=== PATIENT | male | born 1960 | race Caucasian/White ===

== ENCOUNTER 2023-05-25 09:35 | Emergency (ER) | payer SELFPAY ==
[~2023-05-25] VITALS: Ht 175.3 cm; Wt 81.6 kg
[~2023-05-25 09:35] MED LIST: PSYL684P2 PO
[2023-05-25 10:10] LABS: BASOPHILS % (AUTO) 0.4 % (0-1); EOSINOPHILS # (AUTO) 0.4 X10'3 (0-0.9); EOSINOPHILS % (AUTO) 5.8 % (0-6); HEMATOCRIT 45.4 % (42.0-52.0); HEMOGLOBIN 15.4 g/dl (14.0-17.9); LYMPHOCYTES # (AUTO) 1.5 X10'3 (1.1-4.8); LYMPHOCYTES % (AUTO) 21.2 % (21-51); MEAN CORPUSCULAR HEMOGLOBIN 31.3 PG (27.0-31.0); MEAN CORPUSCULAR HGB CONC 33.8 g/dL (33.0-36.5); MEAN CORPUSCULAR VOLUME 92.6 FL (78-98); MEAN PLATELET VOLUME 7.9 FL (7.4-10.4); MONOCYTES # (AUTO) 0.8 X10'3 (0-0.9); MONOCYTES % (AUTO) 11.1 % (2-12); NEUTROPHILS # (AUTO) 4.3 X10'3 (1.8-7.7); NEUTROPHILS % (AUTO) 61.5 % (42-75); PLATELET COUNT 98 X10'3 (140-440); RED BLOOD COUNT 4.91 X10'6 (4.70-6.10); RED CELL DISTRIBUTION WIDTH 15.1 % (11.5-14.5); WHITE BLOOD COUNT 6.9 X10'3 (4.5-11.0)
[2023-05-25 10:23] LABS: ALANINE AMINOTRANSFERASE 28 U/L (12-78); ALBUMIN 3.4 G/DL (3.4-5.0); ALBUMIN/GLOBULIN RATIO 0.6 (1.1-1.5); ALKALINE PHOSPHATASE 77 IU/L (46-116); ANION GAP 6 (8-16); ASPARTATE AMINO TRANSFERASE 27 U/L (10-37); BILIRUBIN,TOTAL 1.1 MG/DL (0.1-1.0); BLOOD UREA NITROGEN 8 MG/DL (7-18); BUN/CREATININE RATIO 10.5 (10.0-20.0); CALCIUM 8.6 MG/DL (8.5-10.1); CHLORIDE 105 MMOL/L (99-107); CREATININE 0.76 MG/DL (0.60-1.10); GLUCOSE 126 MG/DL (70-104); LIPASE 79 U/L (73-393); POTASSIUM 3.5 MMOL/L (3.5-5.1); SODIUM 136 MMOL/L (135-145); TOTAL CARBON DIOXIDE 24.6 MMOL/L (24-32); TOTAL PROTEIN 8.8 G/DL (6.4-8.2); eGFR > 90 ML/MIN
[2023-05-25] MEDS ORDERED: morphine 4 MG/ML inj SYRINge IV PRN (10:25)
[2023-05-25] MEDS ORDERED: normal saline 1000ML IV soln IVB ONE ×2 (10:25→11:45)
[2023-05-25] MEDS ORDERED: ondansetron/PF 4mg/2ml inj IV ONE (10:25)
[2023-05-25 11:25] VITALS: BP 163/99
[2023-05-25 11:44] LABS: CLARITY,URINE CLEAR (Clear); COLOR,URINE YELLOW (Yellow); GLUCOSE, URINE NEGATIVE (Neg); KETONES,URINE NEGATIVE (Neg); LEUKOCYTE ESTERASE ,URINE NEGATIVE (Neg); NITRITES, URINE NEGATIVE (Neg); OCCULT BLOOD,URINE NEGATIVE (Neg); PROTEIN,URINE NEGATIVE (Neg); UROBILINOGEN,URINE 0.2 E.U/dL (0.2-1.0)
[2023-05-25 11:49] LABS: UA COLLECTION TYPE CLN CATCH MIDSTREAM
[2023-05-25] MEDS ORDERED: [UNRECOGNIZED DRUG - CODE] PO (12:43)
[2023-05-25] MEDS ORDERED: PER5325T PO (15:15)
== END 2023-05-25 12:59 | disposition home or self-care (01) ==
LOC: ER 09:35
DX: K70.30 Alcoholic cirrhosis of liver without ascites (principal); G89.29 Other chronic pain; M54.9 Dorsalgia, unspecified; F32.A Depression, unspecified; Z79.899 Other long term (current) drug therapy; B19.20 Unspecified viral hepatitis C without hepatic coma; B25.1 Cytomegaloviral hepatitis
CPT/HCPCS: 74176; 80053; 81003; 83690; 85025; 96361; 96374; 96375; 99285; J2270; J2405; J7030

== ENCOUNTER 2023-06-25 04:50 | Emergency (ER) | payer MEDICAID ==
[~2023-06-25] VITALS: Ht 177.8 cm; Wt 86.4 kg
[~2023-06-25 04:50] MED LIST changes: +PER5325T PO
[2023-06-25 07:57] LABS: BASOPHILS % (AUTO) 0.5 % (0-1); EOSINOPHILS # (AUTO) 0.4 X10'3 (0-0.9); EOSINOPHILS % (AUTO) 4.9 % (0-6); HEMATOCRIT 45.3 % (42.0-52.0); HEMOGLOBIN 15.5 g/dl (14.0-17.9); LYMPHOCYTES # (AUTO) 1.4 X10'3 (1.1-4.8); LYMPHOCYTES % (AUTO) 17.6 % (21-51); MEAN CORPUSCULAR HEMOGLOBIN 31.6 PG (27.0-31.0); MEAN CORPUSCULAR HGB CONC 34.3 g/dL (33.0-36.5); MEAN CORPUSCULAR VOLUME 92.2 FL (78-98); MEAN PLATELET VOLUME 8.4 FL (7.4-10.4); MONOCYTES # (AUTO) 0.9 X10'3 (0-0.9); MONOCYTES % (AUTO) 10.9 % (2-12); NEUTROPHILS # (AUTO) 5.2 X10'3 (1.8-7.7); NEUTROPHILS % (AUTO) 66.1 % (42-75); PLATELET COUNT 73 X10'3 (140-440); RED BLOOD COUNT 4.91 X10'6 (4.70-6.10); RED CELL DISTRIBUTION WIDTH 14.8 % (11.5-14.5); WHITE BLOOD COUNT 7.8 X10'3 (4.5-11.0)
[2023-06-25 08:05] LABS: ALANINE AMINOTRANSFERASE 20 U/L (12-78); ALBUMIN 3.5 G/DL (3.4-5.0); ALBUMIN/GLOBULIN RATIO 0.6 (1.1-1.5); ALKALINE PHOSPHATASE 79 IU/L (46-116); AMYLASE 48 U/L (25-115); ANION GAP 11 (8-16); ASPARTATE AMINO TRANSFERASE 22 U/L (10-37); BLOOD UREA NITROGEN 11 MG/DL (7-18); BUN/CREATININE RATIO 14.5 (10.0-20.0); CALCIUM 9.1 MG/DL (8.5-10.1); CHLORIDE 103 MMOL/L (99-107); CREATININE 0.76 MG/DL (0.60-1.10); GLUCOSE 142 MG/DL (70-104); LIPASE 79 U/L (73-393); POTASSIUM 3.9 MMOL/L (3.5-5.1); SODIUM 141 MMOL/L (135-145); TOTAL CARBON DIOXIDE 27.1 MMOL/L (24-32); TOTAL PROTEIN 9.1 G/DL (6.4-8.2); eGFR > 90 ML/MIN
[2023-06-25] MEDS ORDERED: normal saline 1000ml 1,000 ML IV ONE (10:45)
[2023-06-25] MEDS ORDERED: morphine 2 MG/ML inj. syringe IV ONE ×2 (10:45→15:35)
[2023-06-25] MEDS ORDERED: ondansetron/PF 4mg/2ml inj IV ONE ×2 (10:45→15:35)
[2023-06-25] MEDS ORDERED: iohexol 300mg/ml 100ml inj. ONE (10:51)
[2023-06-25 11:25] LABS: BASOPHILS % (AUTO) 0.5 % (0-1); EOSINOPHILS # (AUTO) 0.2 X10'3 (0-0.9); EOSINOPHILS % (AUTO) 3.5 % (0-6); HEMATOCRIT 41.2 % (42.0-52.0); HEMOGLOBIN 14.1 g/dl (14.0-17.9); LYMPHOCYTES # (AUTO) 1.3 X10'3 (1.1-4.8); LYMPHOCYTES % (AUTO) 17.7 % (21-51); MEAN CORPUSCULAR HEMOGLOBIN 31.5 PG (27.0-31.0); MEAN CORPUSCULAR HGB CONC 34.3 g/dL (33.0-36.5); MEAN PLATELET VOLUME 8.1 FL (7.4-10.4); MONOCYTES # (AUTO) 0.8 X10'3 (0-0.9); MONOCYTES % (AUTO) 10.9 % (2-12); NEUTROPHILS # (AUTO) 4.8 X10'3 (1.8-7.7); NEUTROPHILS % (AUTO) 67.4 % (42-75); PLATELET COUNT 65 X10'3 (140-440); RED BLOOD COUNT 4.48 X10'6 (4.70-6.10); RED CELL DISTRIBUTION WIDTH 14.5 % (11.5-14.5); WHITE BLOOD COUNT 7.1 X10'3 (4.5-11.0)
[2023-06-25 11:32] LABS: CLARITY,URINE CLEAR (Clear); COLOR,URINE YELLOW (Yellow); GLUCOSE, URINE NEGATIVE (Neg); KETONES,URINE NEGATIVE (Neg); LEUKOCYTE ESTERASE ,URINE NEGATIVE (Neg); NITRITES, URINE NEGATIVE (Neg); OCCULT BLOOD,URINE NEGATIVE (Neg); PH,URINE 5.5 (4.8-8.0); PROTEIN,URINE NEGATIVE (Neg)
[2023-06-25 11:34] LABS: UA COLLECTION TYPE CLN CATCH MIDSTREAM
[2023-06-25 11:40] LABS: URINE AMPHETAMINE SCREEN NEGATIVE (Neg); URINE BARBITUATE SCREEN NEGATIVE (Neg); URINE BENZODIAZEPINES SCREEN NEGATIVE (Neg); URINE CANNABINOID SCREEN POSITIVE (Neg); URINE COCAINE SCREEN NEGATIVE (Neg); URINE METHADONE SCREEN NEGATIVE (Neg); URINE OPIATE SCREEN NEGATIVE (Neg); URINE PHENCYCLIDINE SCREEN NEGATIVE (Neg)
[2023-06-25 11:41] LABS: ALANINE AMINOTRANSFERASE 21 U/L (12-78); ALBUMIN 3.3 G/DL (3.4-5.0); ALBUMIN/GLOBULIN RATIO 0.6 (1.1-1.5); ALKALINE PHOSPHATASE 71 IU/L (46-116); ANION GAP 12 (8-16); ASPARTATE AMINO TRANSFERASE 21 U/L (10-37); BILIRUBIN,TOTAL 1.2 MG/DL (0.1-1.0); BLOOD UREA NITROGEN 10 MG/DL (7-18); BUN/CREATININE RATIO 15.4 (10.0-20.0); CALCIUM 8.7 MG/DL (8.5-10.1); CHLORIDE 105 MMOL/L (99-107); CREATININE 0.65 MG/DL (0.60-1.10); ETHANOL < 10 MG/DL (<10); GLUCOSE 119 MG/DL (70-104); LIPASE < 50 U/L (73-393); POTASSIUM 3.5 MMOL/L (3.5-5.1); SODIUM 140 MMOL/L (135-145); TOTAL CARBON DIOXIDE 23.1 MMOL/L (24-32); TOTAL PROTEIN 8.4 G/DL (6.4-8.2); eGFR > 90 ML/MIN
--- NOTE | 2023-06-25 11:43 | NUR ---
PT TO CT
--- NOTE | 2023-06-25 14:31 | NUR ---
RELIEVING RN FOR LUNCH, PT IS RESTING QUIETLY ON BED, ASKING FOR PAIN MEDICATION, DR MCRAE AWARE. PT ALSO AWARE OF PLAN FOR HOSPITALIST TO CONSULT WITH GI DOCTOR WHETHER TO ADMIT HERE OR TRANSFER TO ANOTHER HOSPITAL FOR HIGHER LEVEL OF CARE
--- NOTE | 2023-06-25 14:48 | NUR ---
Pt c/o 06/30 pain to his RUQ of his ABD. MD was notified. MD refused to give anymore medication at this time. Hospitalist has been notified of new admit. Awaiting new MD.
[2023-06-25 15:19] VITALS: BP 167/88; PULSE 67; TEMP 97.8; O2SAT 98
[2023-06-25 15:53] VITALS: RESP 20
[2023-06-25] MEDS ORDERED: PROP20TA6 PO (17:18)
[2023-06-25] MEDS ORDERED: LACT10SO3 PO (17:18)
[2023-06-25] MEDS ORDERED: LISI20TA28 PO (17:19)
[2023-06-25] MEDS ORDERED: TRAM50TA2 PO (17:38)
== END 2023-06-25 17:31 | disposition home or self-care (01) ==
LOC: ER 04:50
DX: R10.10 Upper abdominal pain, unspecified (principal); R11.0 Nausea; E72.20 Disorder of urea cycle metabolism, unspecified; C22.0 Liver cell carcinoma; K74.60 Unspecified cirrhosis of liver; R10.13 Epigastric pain; R10.11 Right upper quadrant pain; G89.29 Other chronic pain; Z86.19 Personal history of other infectious and parasitic diseases; Z72.89 Other problems related to lifestyle; Z79.899 Other long term (current) drug therapy
CPT/HCPCS: 36415; 74177; 80053; 80305; 80320; 81003; 82140; 82150; 83690; 85025; 85610; 96361; 96374; 96375; 96376; 99285; J2270; J2405; J3490; J7030; Q9967

== ENCOUNTER → 2024-04-30 | Outpatient (CLI) | payer MEDICAID ==
[~2024-04-30] MED LIST changes: +LACT10SO3 PO; -PER5325T PO; +PROP20TA6 PO
== END | disposition home or self-care (01) ==
LOC: RAD 14:09
PROVIDERS: ATTEND Family Medicine
DX: M25.511 Pain in right shoulder (principal); M25.512 Pain in left shoulder
CPT/HCPCS: 73030

== ENCOUNTER 2025-05-10 10:59 | Emergency (ER) | payer MEDICAID ==
[~2025-05-10] VITALS: Ht 175.3 cm; Wt 86.8 kg
[~2025-05-10 10:59] MED LIST changes: +LACT-373 PO; -LACT10SO3 PO
[2025-05-10 11:11] VITALS: TEMP 98.4
[2025-05-10 11:59] LABS: BASOPHILS # (AUTO) 0.1 X10'3 (0-0.2); BASOPHILS % (AUTO) 0.8 % (0-1); EOSINOPHILS # (AUTO) 0.7 X10'3 (0-0.9); EOSINOPHILS % (AUTO) 7.3 % (0-6); HEMATOCRIT 44.9 % (42.0-52.0); HEMOGLOBIN 15.7 g/dl (14.0-17.9); LYMPHOCYTES # (AUTO) 1.5 X10'3 (1.1-4.8); LYMPHOCYTES % (AUTO) 15.8 % (21-51); MEAN CORPUSCULAR HEMOGLOBIN 31.4 PG (27.0-31.0); MEAN CORPUSCULAR HGB CONC 34.9 g/dL (33.0-36.5); MEAN CORPUSCULAR VOLUME 89.9 FL (78-98); MEAN PLATELET VOLUME 8.3 FL (7.4-10.4); MONOCYTES # (AUTO) 0.9 X10'3 (0-0.9); MONOCYTES % (AUTO) 9.3 % (2-12); NEUTROPHILS # (AUTO) 6.2 X10'3 (1.8-7.7); NEUTROPHILS % (AUTO) 66.8 % (42-75); PLATELET COUNT 124 X10'3 (140-440); RED BLOOD COUNT 4.99 X10'6 (4.70-6.10); RED CELL DISTRIBUTION WIDTH 13.3 % (11.5-14.5); WHITE BLOOD COUNT 9.2 X10'3 (4.5-11.0)
[2025-05-10 12:18] LABS: BILIRUBIN,URINE NEGATIVE (Neg); COLOR,URINE YELLOW (Yellow); GLUCOSE, URINE >=1000 mg/dl (Neg); KETONES,URINE 15 mg/dl (Neg); LEUKOCYTE ESTERASE ,URINE NEGATIVE (Neg); NITRITES, URINE NEGATIVE (Neg); OCCULT BLOOD,URINE NEGATIVE (Neg); PROTEIN,URINE NEGATIVE (Neg); UROBILINOGEN,URINE 0.2 E.U/dL (0.2-1.0)
[2025-05-10 12:20] LABS: CLARITY,URINE SLIGHTLY CLOUDY (Clear); UA COLLECTION TYPE URINAL
[2025-05-10 12:21] LABS: ALANINE AMINOTRANSFERASE 26 U/L (12-78); ALBUMIN 3.7 G/DL (3.4-5.0); ALBUMIN/GLOBULIN RATIO 0.7 (1.1-1.5); ALKALINE PHOSPHATASE 96 IU/L (46-116); ANION GAP 8 (8-16); ASPARTATE AMINO TRANSFERASE 24 U/L (10-37); BILIRUBIN,TOTAL 0.6 MG/DL (0.1-1.0); BLOOD UREA NITROGEN 14 MG/DL (7-18); BUN/CREATININE RATIO 17.7 (10.0-20.0); CHLORIDE 104 MMOL/L (99-107); CREATININE 0.79 MG/DL (0.60-1.10); GLUCOSE 161 MG/DL (70-104); LIPASE 40 U/L (16-77); POTASSIUM 3.6 MMOL/L (3.5-5.1); SODIUM 138 MMOL/L (135-145); TOTAL CARBON DIOXIDE 25.8 MMOL/L (24-32); TOTAL PROTEIN 9.1 G/DL (6.4-8.2); eCRCL 96 ML/MIN; eGFR > 90 ML/MIN
--- NOTE | 2025-05-10 12:22 | RADIOLOGY REPORT ---
EXAM: DI CHEST,TWO VIEWS HISTORY: fatigue COMPARISON: None TECHNIQUE: Frontal and lateral views of the chest were performed. FINDINGS: No pneumothorax, pulmonary edema, pleural effusions, or consolidative infiltrates. The heart is not enlarged. No fractures are identified about the bony thorax. There is mild thoracic degenerative di sc disease. IMPRESSION: No acute intrathoracic process.
[2025-05-10 12:40] LABS: RENAL CELLS, URINE FEW /HPF; SQUAMOUS EPITHELIAL CELL,UR MODERATE /LPF (FEW)
[2025-05-10 12:42] LABS: BACTERIA,URINE 1+ /HPF (Neg)
[2025-05-10 12:44] LABS: MUCUS STRANDS MODERATE /LPF (Neg)
[2025-05-10 12:45] LABS: RBC,URINE 0-2 /HPF (0-2); WBC CLUMPS,URINE FEW /HPF (NEGATIVE); WBC,URINE 20-30 /HPF (0-4)
[2025-05-10 14:44] VITALS: BP 137/76; PULSE 60; RESP 15; O2SAT 95
[2025-05-10] MEDS: cephalexin 250mg capsule PO ONE (14:44)
--- NOTE | 2025-05-10 14:47 | Physician Documentation ---
History of Present Illness Chief Complaint: Abdominal Pain Stated Complaint: LOW BLOOD SUGAR,SIDE PAIN Time Seen by MD: 11:22 Primary Medical Doctor: n/a Mode of Arrival: POV HPI 65 year old male with R sided flank pain which he says is chronic for him and related to his chronic liver disease. Is primarily seeking help for fatigue that has been bothering him for the better part of 2 weeks. Sleeps 10-11 hours per day and also takes another several hour nap every days. Denies fevers, N/V/D, urinary symptoms, cough/flu symptoms. Medication Reconciliation Allergies: Coded Allergies: No Known Allergies (Unverified , 06/25/23) Scheduled Cephalexin*Monohydrate* (Keflex*), 1 CAP PO QID Lactulose (Lactulose), 30 ML PO Q12H Propranolol Hcl (Propranolol Hcl), 1 TAB PO Q12H Psyllium Husk/Aspartame (Metamucil Powder), 288 GM PO BID Past Medical History Past Medical History: Cirrohsis, Hepatitis C, Chronic Pain, Chronic Back Pain, Depression Past Surgical History: no surgical history Alcohol Use: Sober Lives In: Home Review of Systems All Other Systems at this time: Reviewed and Negative Physical Exam Vital Signs: RN Vital Signs have been reviewed: Yes, Temperature: 98.4, Source: Temporal, Heart Rate: 63, Respiratory Rate: 14, BP: 134/75, Pulse Oximetry: 96, Weight: 86.750 Physical Exam HEENT: PERRL, moist oral mucosa, EOMI Pulmonary: No respiratory distress Cardiac: RRR, no murmur, rub or gallop GI: nondistended, soft, nontender, no guarding, no rebound MSK: no deformity Skin: w/d/i, no rash Neuro: alert, nonfocal Psych: normal affect Progress Results/Orders Reviewed/noted all lab results: Yes Results/Orders Orders - JODI HADDAD MD Chest,Two Views (05/10/25 12:07) Cult Urine + [place] [address] (05/10/25 12:47) Completed Orders - JODI HADDAD MD Cbc/Diff (05/10/25 11:21) BMP (05/10/25 11:21) Lipase (05/10/25 11:21) CMP (05/10/25 11:21) Chest,Two Views (05/10/25 12:07) Ua W/Microscopic, Cult If Ind (05/10/25 11:57) Ammonia (05/10/25 13:38) Cephalexin Capsule (Keflex Capsule) (05/10/25 14:25) Vital Signs 05/10/25 05/10/25 05/10/25 05/10/25 11:11 11:27 12:01 13:59 Temp 98.4 Pulse 67 67 63 Resp 16 15 15 14 B/P (MAP) 144/81 142/91 (108) 134/75 (94) Pulse Ox 96 97 96 Laboratory Tests Test 05/10/25 11:10 05/10/25 11:44 05/10/25 11:57 05/10/25 14:06 Glucometer 170 H White Blood Count 9.2 Red Blood Count 4.99 Hemoglobin 15.7 Hematocrit 44.9 Mean Corpuscular Volume 89.9 Mean Corpuscular Hemoglobin 31.4 H Mean Corpuscular Hemoglobin Concent 34.9 Red Cell Distribution Width 13.3 Platelet Count 124 L Mean Platelet Volume 8.3 Neutrophils (%) (Auto) 66.8 Lymphocytes (%) (Auto) 15.8 L Monocytes (%) (Auto) 9.3 Eosinophils (%) (Auto) 7.3 H Basophils (%) (Auto) 0.8 Neutrophils # (Auto) 6.2 Lymphocytes # (Auto) 1.5 Monocytes # (Auto) 0.9 Eosinophils # (Auto) 0.7 Basophils # (Auto) 0.1 CBC Comment Sodium Level 138 Potassium Level 3.6 Chloride Level 104 Carbon Dioxide Level 25.8 Anion Gap 8 Blood Urea Nitrogen 14 Creatinine 0.79 Estimated GFR/1.73 m2 > 90 BUN/Creatinine Ratio 17.7 Glucose Level 161 H Calcium Level 9.0 Total Bilirubin 0.6 Aspartate Amino Transf (AST/SGOT) 24 Alanine Aminotransferase (ALT/SGPT) 26 Alkaline Phosphatase 96 Total Protein 9.1 H Albumin 3.7 Globulin 5.4 H Albumin/Globulin Ratio 0.7 L Lipase 40 Chemistry Comments Urine Specimen Description Urinal Urine Color Yellow Urine Clarity Slightly cloudy Urine pH 6.0 Urine Specific [place] 1.020 Urine Protein Negative Urine Glucose (UA) >=1000 H Urine Ketones 15 H Urine Occult Blood Negative Urine Nitrite Negative Urine Bilirubin Negative Urine Urobilinogen 0.2 Urine Leukocyte Esterase Negative Urine RBC 0-2 Urine WBC 20-30 H Urine WBC [place] Few Urine Squamous Epithelial Cells Moderate Urine Renal Cells Few Urine Bacteria 1+ Urine Mucus Moderate Urine Culture Indicated Indicated Volume Urine Centrifuged 10 ml Urine Comment Ammonia 23 Microbiology Date/Time Source Procedure Growth Status 05/10/25 12:47 Urine Urinal (Er Only) Urine Culture - Preliminary Culture received. Resulted Medical Decision Making Findings 65 year old male with vague complaints of fatigue but no other acute symptoms. Workup suggested UTI as only cause. Rx ABx, return precautions discussed. Additional Comments ddx = electrolyte disturbance, UTI, medication side effect, kidney failure, liver failure, anemia Departure Disposition: HOME / SELF CARE / HOMELESS Impression: Primary Impression: UTI (urinary tract infection) Condition: Stable Discharge Instructions: Urinary Tract Infection, Adult Referrals: NO PRIMARY CARE PROVIDER (PCP) Prescriptions Cephalexin*Monohydrate* (Keflex*) 500 Mg Capsule 1 CAP PO QID for 7 Days, #28 CAP Prov: JODI HADDAD MD 05/10/25 Education Educated: Patient Educated regarding: diagnosis, treatment, prognosis, need for follow up Signature Scribe Signature: . Attestation: . JODI HADDAD MD May 10, 2025 14:47
[2025-05-10] MEDS ORDERED: CEPH-585 PO (15:16)
== END 2025-05-10 15:25 | disposition home or self-care (01) ==
LOC: ER 10:59
DX: N39.0 Urinary tract infection, site not specified (principal); F32.A Depression, unspecified; Z79.899 Other long term (current) drug therapy
CPT/HCPCS: 36415; 71046; 80053; 81001; 82140; 82948; 83690; 85025; 87088; 99284

== ENCOUNTER 2025-06-18 11:50 | Emergency (ER) | payer MEDICAID ==
[~2025-06-18] VITALS: Ht 177.8 cm; Wt 84.1 kg
[2025-06-18 11:53] VITALS: BP 182/96; PULSE 83; TEMP 98.9; O2SAT 98
--- NOTE | 2025-06-18 12:10 | Physician Documentation ---
History of Present Illness ~ Chief Complaint: Shoulder pain Stated Complaint: "I WAS ATTACKED BY A DOG/RT SHOULDER PAIN" Time Seen by MD: 12:06 Primary Medical Doctor: n/a Source: patient Mode of Arrival: POV Exam Limitations: no limitations HPI Patient with a history of high blood pressure in with dog bite to the right forearm. He states it happened last night and it was a neighbor's dog. He states that the dog is up-to-date on rabies vaccinations. He woke up this morning with severe right shoulder pain. The dog did not bite him there but he knows he was pulling on the arm. No pain yesterday. The area of the bite has very mild pain but nothing significant. There is no pain between the bite on the forearm and the shoulder. Tetanus within 5 years?: Yes Medication Reconciliation Allergies: Coded Allergies: No Known Allergies (Unverified , 06/18/25) Scheduled Amox Tr/Potassium Clavulanate 875/125 MG (Augmentin 875/125 MG), 1 TAB PO BID Lactulose (Lactulose), 30 ML PO Q12H Propranolol Hcl (Propranolol Hcl), 1 TAB PO Q12H Psyllium Husk/Aspartame (Metamucil Powder), 288 GM PO BID Past Medical History Past Medical History: Cirrohsis, Hepatitis C, Chronic Pain, Chronic Back Pain, Depression Past Surgical History: no surgical history Alcohol Use: Sober Lives In: Home Review of Systems All Other Systems at this time: Reviewed and Negative Physical Exam Vital Signs: Temperature: 98.9, Source: Temporal, Heart Rate: 83, Respiratory Rate: 20, BP: 182/96, Pulse Oximetry: 98, Weight: 84.090 Oxygen Flow Rate: 0 General Appearance: alert, WD/WN, other Neck: normal inspection, full range of motion Respiratory: normal breath sounds Cardiovascular: regular rate, rhythm Shoulder Severe pain in the anterior and posterior shoulder with any movement of the arm. No erythema or sign of infection. No significant tenderness on palpation. Limited range of motion secondary to pain. Good peripheral pulses. 1 cm scab on the central area of the posterior aspect of the forearm without fluctuance, tenderness or surrounding erythema Elbow/Forearm: normal inspection, non-tender Distal Function: normal pulse Skin: normal color, warm/dry Neurologic: oriented x4, memory intact Psychiatric: normal mood/affect Progress Progress Note Patient in with dog bite to the right forearm. Likely sprain to the shoulder as he was sort of struggling to get the dog off of his forearm. X-ray is unre markable for fracture. Could be a tear. Giving a script for 12 [place] and a script for Augmentin. Gave Tdap in the ER. Expressed to the patient that I do believe this is musculoskeletal but he needs to keep in mind that infection can travel up the arm and there could always be worsening infection. He is to follow up with his doctor in a week or return here if new or worsening symptoms prior to follow-up. Discharged home in good condition. Results/Orders Results/Orders Orders - BLANCA MURRAY MD Shoulder, Complete (Min 2 Vws) (06/18/25 11:57) Completed Orders - BLANCA MURRAY MD Shoulder, Complete (Min 2 Vws) (06/18/25 11:57) Tetanus/Pertuss/Diph Acell/Pf (Boostrix (06/18/25 12:15) Hydrocodone/Apap 5/325mg Tab ([place] 5/32 (06/18/25 12:15) Amox Tr/Potassium Clavulanate (Augmentin (06/18/25 12:15) Medications Received in ER Medications (Trade) Dose Ordered Sig/Sergio Route PRN Reason Start Time Stop Time Status Last Admin Dose Admin (Boostrix vaccine syringe) 0.5 ml ONCE ONCE IMVAC 06/18/25 12:15 06/18/25 12:22 DC 06/18/25 12:22 0.5 ML ([place] 5/325mg tablet) 1 tab ONCE ONCE PO 06/18/25 12:15 06/18/25 12:22 DC 06/18/25 12:21 1 TAB (Augmentin 875-125mg tablet) 1 tab ONCE ONCE PO 06/18/25 12:15 06/18/25 12:22 DC 06/18/25 12:22 1 TAB Vital Signs 06/18/25 06/18/25 11:53 12:21 Temp 98.9 Pulse 83 Resp 20 16 B/P (MAP) 182/96 Pulse Ox 98 O2 Flow Rate 0 Departure Disposition: 01 HOME / SELF CARE / HOMELESS Impression: Primary Impression: Strain of shoulder Qualified Codes: S46.911A - Strain of unspecified muscle, fascia and tendon at shoulder and upper arm level, right arm, initial encounter Additional Impression: Dog bite Qualified Codes: W54.0XXA - Bitten by dog, initial encounter Condition: Stable Additional Instructions: Clean the wound daily. Complete your antibiotics. Follow up if any sign of infection to the wound her worsening pain. Follow up with your doctor in 7-10 days regarding the shoulder sprain. Referrals: NO PRIMARY CARE PROVIDER (PCP) Prescriptions Hydrocodone Bit/Acetaminophen 5/325 MG ([place] 5/325 MG) 5 Mg/325 Mg Tablet 1 TAB PO Q6H PRN for pain, #12 TAB Prov: BLANCA MURRAY MD 06/18/25 Amox Tr/Potassium Clavulanate 875/125 MG (Augmentin 875/125 MG) 875 Mg-125 Mg Tablet 1 TAB PO BID for 5 Days, #10 TAB Prov: BLANCA MURRAY MD 06/18/25 Education Educated: Patient Educated regarding: diagnosis, treatment, need for follow up Signature Scribe Signature: No scribe used Attestation: No scribe used BLANCA MURRAY MD Jun 18, 2025 12:09
[2025-06-18] MEDS ORDERED: AMOX-580 PO (12:16)
[2025-06-18 12:21] VITALS: RESP 16
[2025-06-18] MEDS: HYDROcodone/acetaminophen 5mg/325mg tablet PO ONE (12:21)
[2025-06-18] MEDS: amox tr/potassium clavulanate 875/125mg TAB PO ONE (12:22)
[2025-06-18] MEDS: TETanus/Pertussis (Acell)/Diphther VAC/PF (Tdap-Adult) 0.5ml syringe IMVAC ONE (12:22)
[2025-06-18] MEDS ORDERED: HYDR-3965 PO (12:39)
--- NOTE | 2025-06-18 13:03 | RADIOLOGY REPORT ---
EXAM: DI SHOULDER, COMPLETE (MIN 2 VWS) CLINICAL INDICATION: Shoulder Pain TECHNIQUE: DI SHOULDER, COMPLETE (MIN 2 VWS) Comparison: DI SHOULDER, COMPLETE (MIN 2 VWS) on DOS: 04/30/24, DI SHOULDER, COMPLETE (MIN 2 VWS) on D OS: 04/30/24 FINDINGS/IMPRESSION: There is no evidence of acute fracture or dislocation. The visualized joint space is well maintained. The alignment is anatomical. There is no radiopaque foreign body.
== END 2025-06-18 12:44 | disposition home or self-care (01) ==
LOC: ER 11:51
DX: S46.811A Strain of other muscles, fascia and tendons at shoulder and upper arm level, right arm, initial encounter (principal); F32.A Depression, unspecified; Z79.899 Other long term (current) drug therapy; W54.0XXA Bitten by dog, initial encounter; Y93.89 Activity, other specified; Y92.89 Other specified places as the place of occurrence of the external cause; Y99.8 Other external cause status
CPT/HCPCS: 73030; 90471; 90715; 99283

== ENCOUNTER 2025-08-01 13:19 | Outpatient (CLI) | payer MEDICAID ==
--- NOTE | 2025-08-01 14:36 | RADIOLOGY REPORT ---
CLINICAL HISTORY: ATAXIA TECHNIQUE: Routine multiplanar imaging of the brain was performed without gadolinium contrast. COMPARISON: None FINDINGS: There is no abnormal restricted diffusion to suggest acute infarction. There is mild brain volume loss. There are no significant chronic small vessel ischemic foci. There is no evidence for acute ischemic changes, mass, mass effect, or extra- axial fluid collection. There is no hydrocephalus or midline shift. The cerebral sulci and subarachnoid cisterns are not effaced. The imaged paranasal sinuses are clear. The globes are intact. The midline structures, including the corpus callosum, are unremarkable. The intracranial flow voids are maintained. IMPRESSION: No acute intracranial abnormality seen. No evidence for acute infarct. No significant white matter disease.
--- NOTE | 2025-08-01 15:34 | RADIOLOGY REPORT ---
CLINICAL INFORMATION: Abnormal reflex. TECHNIQUE: Multisequence multiplanar MRI images of the cervical spine were obtained without contrast. COMPARISON: None FINDINGS: Bones: Straightening of the normal cervical lordosis. No significant spondylolisthesis. Vertebral body heights are maintained. Posterior elements are intact. No acute fracture. No focal suspicious marrow signal abnormality. Spinal cord: Spinal cord is normal in signal intensity and morphology. Paraspinal soft tissues: Paraspinal and prevertebral soft tissues are unremarkable. Other: Motion artifact limits evaluation. Prominence of the adenoid tonsils incidentally noted. Cervical disc levels: C2-C3: Disc desiccation. No significant spinal canal stenosis. Facet and uncinate hypertrophy with mild left neural foraminal stenosis. C3-C4: Disc desiccation. Diffuse disc bulge superimposed on congenital spinal canal narrowing causing moderate spinal canal stenosis and partial effacement of the lateral recesses. Facet and uncinate hypertrophy with moderate left and [id number] right neural foraminal stenoses. C4-C5: Disc desiccation with mild disc space narrowing and diffuse disc bulge superimposed on congenital spinal canal narrowing causing moderate spinal canal stenosis, abutting the ventral aspect of the spinal cord and effacing the lateral recesses. Facet and uncinate hypertrophy with moderate to severe left and moderate right neural foraminal stenoses. C5-C6: Disc desiccation with mild to moderate disc space narrowing and diffuse disc bulge superimposed on congenital spinal canal narrowing causing moderate to severe spinal canal stenosis, abutting the ventral aspect of the spinal cord and effacing the lateral recesses. Facet and uncinate hypertrophy with severe bilateral neural foraminal stenoses. C6-C7: Disc desiccation. Mild disc space narrowing and diffuse disc bulge superimposed on congenital spinal canal narrowing causing moderate to severe spinal canal stenosis, abutting the ventral aspect of the spinal cord and effacing the lateral recesses. Facet and uncinate hypertrophy with severe left and moderate to severe right neural foraminal stenoses. C7-T1: Disc desiccation with mild disc space narrowing and diffuse disc bulge superimposed on congenital spinal canal narrowing causing moderate spinal canal stenosis. Facet and uncinate hypertrophy with moderate bilateral neural foraminal stenoses, left greater than right. IMPRESSION: 1. Motion limited study. 2. Degenerative disc disease and facet/ uncinate disease in the cervical spine with associated spinal canal, subarticular, and neural foraminal stenoses as detailed above. 3. There is a degree of congenital spinal canal narrowing contributing to the spinal canal stenoses. 4. Straightening of the normal cervical lordosis. No significant spondylolisthesis. 5. Additional findings as described above.
== END 2025-08-01 23:59 | disposition home or self-care (01) ==
LOC: MRI02 13:19
PROVIDERS: ATTEND Family Medicine
DX: R27.0 Ataxia, unspecified (principal); R29.2 Abnormal reflex
CPT/HCPCS: 70551; 72141

== ENCOUNTER 2025-10-11 14:38 | Emergency (ER) | payer MEDICAID ==
[~2025-10-11] VITALS: Ht 175.3 cm; Wt 91.6 kg
[2025-10-11 15:28] LABS: MEAN PLATELET VOLUME 8.3 FL (7.4-10.4); RED CELL DISTRIBUTION WIDTH 14.3 % (11.5-14.5)
[2025-10-11 15:32] LABS: LEUKOCYTE ESTERASE ,URINE NEGATIVE (Neg); NITRITES, URINE NEGATIVE (Neg); OCCULT BLOOD,URINE NEGATIVE (Neg)
[2025-10-11 15:37] LABS: UA COLLECTION TYPE CLN CATCH MIDSTREAM
[2025-10-11 15:39] LABS: MUCUS STRANDS FEW /LPF (Neg); SQUAMOUS EPITHELIAL CELL,UR FEW /LPF (FEW)
--- NOTE | 2025-10-11 15:43 | Physician Documentation ---
History of Present Illness Chief Complaint: Abdominal Pain Stated Complaint: ABD PAIN OK to notify your PCP?: Yes (He basically) Primary Medical Doctor: n/a Source: patient Mode of Arrival: POV Exam Limitations: no limitations (So) HPI 65 y/o male who is here with epigastric pain which started a few days ago. Pain getting progressively worse which is why he decided to come to the ER today. No pre arrival treatment. Has never had anything like this before. No history of abdominal surgeries. He does have known cirrhosis and is monitored every six months with imaging studies due to a spot on his liver that they are monitoring for hepatocellular carcinoma. He states he is scheduled in October for another imaging study. He has a curriculum supervisor at [facility] who follows him. He reports some nausea but no vomiting. No changes in his bowel habits last bowel movement was earlier today. He states that when he has had pain like this in the past that has been on the right side of his abdomen and his curriculum supervisor did prescribe him [place]. He is hoping he can get a prescription for this for his pain. He has not taken any [place] since May of this year. No fever, chills, back pain, chest pain, SOB. Medication Reconciliation Allergies: Coded Allergies: No Known Allergies (Unverified , 10/11/25) Scheduled Lactulose (Lactulose), 30 ML PO Q12H Pantoprazole Sodium (PROTONIX tablet), 1 TAB PO DAILY Propranolol Hcl (Propranolol Hcl), 1 TAB PO Q12H Psyllium Husk/Aspartame (Metamucil Powder), 288 GM PO BID Scheduled PRN Hydrocodone Bit/Acetaminophen (Hydrocodon-Acetaminophn 10-325 tablet), 1 TAB PO TID PRN PRN for pain Past Medical History Past Medical History: Cirrohsis, Hepatitis C, Chronic Pain, Chronic Back Pain, Depression Past Surgical History: no surgical history Alcohol Use: Sober Lives In: Home Review of Systems All Other Systems at this time: Reviewed and Negative Physical Exam Vital Signs: Temperature: 98.7, Source: Oral, Heart Rate: 61, Respiratory Rate: 18, BP: 141/90, Pulse Oximetry: 96, Weight: 91.600 Oxygen Flow Rate: 0 Physical Exam GENERAL: Alert, MILD DISTRESS, APPEARS IN PAIN. HEENT: NCAT, EOMI, PERRL, normal oropharynx, moist oral mucosa. NECK: Supple, trachea midline. CARDIAC: Regular rate and rhythm, no murmurs, rubs, or gallops. PV: Equal distal pulses. No lower extremity edema, cap refill less than 2 seconds. RESPIRATORY: Equal breath sounds, clear to auscultation bilaterally, no respiratory distress. GASTROINTESTINAL: OBESE ABDOMEN, Non distended, soft, PATIENT HAS VERY FOCAL TTP AT THE EPIGASTRIC AREA WITH EVEN LIGHT PALPATION, No guarding or rebound. MUSCULOSKELETAL: Normal range of motion, nontender, no swelling. Normal gait. NEUROLOGICAL: Awake, alert, and oriented x 3. SKIN: Warm/dry, no pallor, no rash. PSYCH: Alert and appropriate. Affect congruent with mood. Speech is clear. Good eye contact. Progress Results/Orders Results/Orders Vital Signs 10/11/25 14:42 Temp 98.7 Pulse 61 Resp 18 B/P (MAP) 141/90 Pulse Ox 96 O2 Flow Rate 0 Laboratory Tests Test 10/11/25 14:46 10/11/25 15:05 10/11/25 15:18 Urine Specimen Description Cln catch midstream Urine Color Yellow Urine Clarity Clear Urine pH 6.0 Urine Specific [place] >=1.030 Urine Protein Trace Urine Glucose (UA) 100 H Urine Ketones Trace H Urine Occult Blood Negative Urine Nitrite Negative Urine Bilirubin Small Urine Urobilinogen 1.0 Urine Leukocyte Esterase Negative Urine RBC 3-10 Urine WBC 0-4 Urine Squamous Epithelial Cells Few Urine Bacteria Few Urine Mucus Few Urine Culture Indicated Not ind Volume Urine Centrifuged 10 ml Urine Comment Chemistry Comments CBC Comment Medical Decision Making Additional information obtaine: old records Findings PREVIOUS VISITS Differential Dx:Considerations: AAA, Angina/CA, Aortic dissection, Appendicitis, Bowel obstruction, Cholangitis, Cholelithasis, Constipation, Diverticular disease, Esophageal rupture, Esophagitis, Gastritis/PUD, Gastroenteritis, GI hemorrhage, Hernia, Hepatitis, Inflammatory BD, Ischemic bowel, Pancreatitis, Trauma, intraabdominal, Urinary tract infection Additional Comments CT SCAN ABDOMEN AND PELVIS DID NOT HAVE ANY EXPLANATION FOR HIS PAIN. HIS PAIN DID IMPROVE AFTER GETTING MORPHINE. HE HAS GOOD F/U WITH HEPATOLOGY AND A PRIMARY CARE PROVIDER. Departure Time of Disposition: 19:12 Disposition: 01 HOME / SELF CARE / HOMELESS Impression: Primary Impression: Abdominal pain Qualified Codes: R10.13 - Epigastric pain Additional Impressions: Cirrhosis of liver Qualified Codes: K74.60 - Unspecified cirrhosis of liver Liver lesion Condition: Stable Discharge Instructions: Abdominal Pain (Nonspecific) Additional Instructions: F/U WITH YOUR PROTECTIVE OFFICER RE: THE FINDINGS F/U WITH YOUR PCP ABOUT GETTING AND UPPER ENDOSCOPY TO FURTHER EVALUATE YOUR ESOPHAGUS LIMIT YOUR TYLENOL INTAKE TO LESS THAN 2000MG SO DO NOT TAKE ANY TYLENOL ON TOP OF WHAT I HAVE PRESCRIBED YOU CT CT CHEST ABDOMEN PELVIS W/ IV CONTRAST HISTORY: upper abdominal pain Comparison Study: DI CHEST,TWO VIEWS on DOS: 05/10/25 Exam Date: 10/11/2025 05:52 PM Radiation Dose Information: CT Dose: CTDI volume is 45 mGy. Dose-length product is 2318 mGy*cm Technique: Technique: Axial images were obtained of the chest, abdomen and pelvis with reformatted coronal and sagittal images also obtained. The intravenous contrast is injected. 100 cc of Omnipaque 390 was injected.. Findings: Lower neck: Unremarkable.. Lungs and Pleura: No focal consolidation.. No pleural effusion.. Lymph nodes: No suspicious intrathoracic lymphadenopathy.. Cardiovascular and Mediastinum: No significant pericardial effusion.. Scattered coronary calcifications. Diffuse esophageal wall thickening. Liver: Diffusely nodular in contour. Areas of hyperenhancement including 3.5 cm enhancing area in the anterior left hepatic lobe peripherally (3:25 ). Additional subcentimeter foci of hyperenhancement also noted. Biliary system: Unremarkable Spleen: Mildly enlarged Pancreas: Mildly atrophic. Adrenals: Unremarkable. Kidneys and ureters: No hydronephrosis Bowel: No obstruction. Scattered colonic diverticula. Normal appendix. Bladder: Unremarkable Reproductive organs: No abnormal mass. Lymph nodes: Nonspecific increased number of nonenlarged lymph nodes in the retroperitoneum including 5 mm left para-aortic lymph node likely reactive. Peritoneum: Unremarkable Vessels: Recanalized paraumbilical vein. Bones and soft tissue: No aggressive osseous lesion IMPRESSION: Cirrhosis with sequela of portal hypertension including splenomegaly and recanalized paraumbilical vein. No significant ascites. Multiple foci of hyperenhancement including 3.5 cm enhancing area in the peripheral left hepatic lobe ; while this could be related to perfusional changes, given underlying cirrhosis, recommend dedicated hepatic protocol CT or MRI to assess for possible underlying HCC. Diffuse esophageal wall thickening may represent esophagitis. Consider endoscopy as outpatient for further evaluation. Increased number of retroperitoneal lymph nodes, nonspecific, favored to be reactive. Referrals: NO PRIMARY CARE PROVIDER (PCP) Prescriptions Pantoprazole Sodium (PROTONIX tablet) 40 Mg Tablet.dr 1 TAB PO DAILY for 30 Days, #30 TAB 0 Refills Prov: URI FONG 10/11/25 Hydrocodone Bit/Acetaminophen (Hydrocodon-Acetaminophn 10-325 tablet) 10mg- 325mg Tablet 1 TAB PO TID PRN PRN for pain for 5 Days, #15 TAB DX: ABDOMINAL PAIN R10.84 Prov: URI FONG 10/11/25 Education Educated: Patient Educated regarding: diagnosis, treatment, need for follow up Signature Scribe Signature: x Attestation: RADHA Paulino Oct 11, 2025 15:43 URI FONG Oct 11, 2025 19:13
[2025-10-11 15:44] LABS: CREATININE 0.60 MG/DL (0.60-1.10); TOTAL CARBON DIOXIDE 25.3 MMOL/L (24-32); eCRCL 126 ML/MIN; eGFR > 90 ML/MIN
[2025-10-11] MEDS ORDERED: iohexol 300mg/ml 100ml inj. ONE (17:42)
[2025-10-11] MEDS: morphine 4 MG/ML inj SYRINge IV ONE (18:40)
[2025-10-11] MEDS: ondansetron/PF 4mg/2ml inj IV ONE (18:41)
[2025-10-11 18:44] VITALS: BP 187/90; PULSE 60; O2SAT 96
[2025-10-11 18:47] VITALS: RESP 14
--- NOTE | 2025-10-11 18:48 | RADIOLOGY REPORT ---
CT CT CHEST ABDOMEN PELVIS W/ IV CONTRAST HISTORY: upper abdominal pain Comparison Study: DI CHEST,TWO VIEWS on DOS: 05/10/25 Exam Date: 10/11/2025 05:52 PM Radiation Dose Information: CT Dose: CTDI volume is 45 mGy. Dose-length product is 2318 mGy*cm Technique: Technique: Axial images were obtained of the chest, abdomen and pelvis with reformatted coronal and sagittal images also obtained. The intravenous contrast is injected. 100 cc of Omnipaque 390 was injected.. Findings: Lower neck: Unremarkable.. Lungs and Pleura: No focal consolidation.. No pleural effusion.. Lymph nodes: No suspicious intrathoracic lymphadenopathy.. Cardiovascular and Mediastinum: No significant pericardial effusion.. Scattered coronary calcifications. Diffuse esophageal wall thickening. Liver: Diffusely nodular in contour. Areas of hyperenhancement including 3.5 cm enhancing area in the anterior left hepatic lobe peripherally (3:25 ). Additional subcentimeter foci of hyperenhancement also noted. Biliary system: Unremarkable Spleen: Mildly enlarged Pancreas: Mildly atrophic. Adrenals: Unremarkable. Kidneys and ureters: No hydronephrosis Bowel: No obstruction. Scattered colonic diverticula. Normal appendix. Bladder: Unremarkable Reproductive organs: No abnormal mass. Lymph nodes: Nonspecific increased number of nonenlarged lymph nodes in the retroperitoneum including 5 mm left para-aortic lymph node likely reactive. Peritoneum: Unremarkable Vessels: Recanalized paraumbilical vein. Bones and soft tissue: No aggressive osseous lesion IMPRESSION: Cirrhosis with sequela of portal hypertension including splenomegaly and recanalized paraumbilical vein. No significant ascites. Multiple foci of hyperenhancement including 3.5 cm enhancing area in the peripheral left hepatic lobe ; while this could be related to perfusional changes, given underlying cirrhosis, recommend dedicated hepatic protocol CT or MRI to assess for possible underlying HCC. Diffuse esophageal wall thickening may represent esophagitis. Consider endoscopy as outpatient for further evaluation. Increased number of retroperitoneal lymph nodes, nonspecific, favored to be reactive.
[2025-10-11] MEDS ORDERED: HYDR-3972 PO (19:10)
[2025-10-11] MEDS ORDERED: PANT-47 PO (19:10)
[2025-10-11] MEDS: pantoprazole 40mg Tablet.DR PO STA (19:19)
[2025-10-11 19:25] VITALS: TEMP 98.7
== END 2025-10-11 19:27 | disposition home or self-care (01) ==
LOC: ER 14:39
DX: K74.60 Unspecified cirrhosis of liver (principal); F32.A Depression, unspecified
CPT/HCPCS: 36415; 71260; 74177; 80053; 81001; 83690; 85025; 96374; 96375; 99285; J2270; J2405; Q9967